=== PATIENT | female | born 1975 | race Caucasian/White ===

== ENCOUNTER 2018-08-24 13:20 | Emergency (ER) | payer SELFPAY ==
[2018-08-24 14:04] LABS: Absolute Lymphocytes (CBC) 0.7 K/uL (0.7-4.9); Absolute Monocytes 0.3 K/uL (0.1-1.3); Absolute Neutrophil 7.2 K/uL (1.8-8.0); Basophils % 0.6 % (0-1.3); Eosinophils % 0.1 % (0-4.4); Hematocrit 40.1 % (36.0-45.0); MPV 11.4 fL (7.6-11.3); Monocytes % 3.8 % (3.3-12.3); RBC Red Blood Cell Count 4.71 M/uL (3.86-4.86)
[2018-08-24 14:10] LABS: Protime INR 1.02
[2018-08-24 14:18] LABS: Urine Blood 1+ (NEG); Urine Glucose NEGATIVE (NEG); Urine Protein 3+ (NEG); Urine pH 5.5 (5.0-7.0)
[2018-08-24 14:24] LABS: Barbiturates NEGATIVE (NEGATIVE); Benzodiazepines POSITIVE (NEGATIVE); Cocaine NEGATIVE (NEGATIVE); METHAMPHETAM NEGATIVE (NEGATIVE); Methadone NEGATIVE (NEGATIVE); Opiates NEGATIVE (NEGATIVE); Phencyclidine NEGATIVE (NEGATIVE); THC Cannibis POSITIVE (NEGATIVE)
[2018-08-24 14:24] LABS: ALT/SGPT 21 U/L (12-78); AST/SGOT 24 U/L (15-37); Albumin 4.4 g/dL (3.4-5.0); Alkaline Phosphatase 56 U/L (45-117); BUN Blood Urea Nitrogen 6 mg/dL (7-18); Bicarbonate 23 mmol/L (21-32); Bilirubin Direct < 0.1 mg/dL (0-0.2); Bilirubin Total 0.4 mg/dL (0.2-1.0); Glucose Level 127 mg/dL (74-106); Potassium 3.9 mmol/L (3.5-5.1); Protein, Total 7.3 g/dL (6.4-8.2); Sodium Level 142 mmol/L (136-145)
--- NOTE | 2018-08-24 14:45 | EDPHYS ---
Physician Documentation [facility] Name: Aury Guerra Age: 43 yrs Sex: Female : 1975 Arrival Date: 08/24/2018 Time: 13:24 Bed 14 Private MD: ED Physician Jered Gutierrez HPI: 08/24 14:07 This 43 yrs old Female presents to ER via EMS with complaints of Seizure. snw 14:07 The patient presents after having a single isolated seizure, that lasted an unknown snw period of time, the episode(s) was witnessed, by co-worker(s). Character of seizure(s): Loss of consciousness: the patient experienced loss of consciousness, Motor activity: the motor activity is unknown, Incontinence: none, Apnea: the patient did not experience apnea, Circulation: the patient did not experience evidence of pulse disturbance, Eye movements: are unknown. Seizure onset: just prior to arrival. Seizure Hx: Last seizure: The patient's last seizure was approximately 1.5 month(s) ago. Associated injury: The patient did not suffer any apparent associated injury. EMS care: IV fluids, supplemental oxygen. Current symptoms: Currently, the patient is not experiencing any symptoms. x 3 or 4 per report. The patient has not recently seen a physician. 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 - Social history:: Smoking status: Patient uses tobacco products, smokes one-half pack cigarettes per day. - Ebola Screening: : Patient negative for fever greater than or equal to 101.5 degrees Fahrenheit, and additional compatible Ebola Virus Disease symptoms Patient denies exposure to infectious person Patient denies travel to an Ebola-affected area in the 21 days before illness onset No symptoms or risks identified at this time. ROS: 13:44 Constitutional: Negative for fever, chills, and weight loss, Eyes: Negative for injury, snw pain, redness, and discharge, ENT: Negative for injury, pain, and discharge, Neck: Negative for injury, pain, and swelling, Cardiovascular: Negative for chest pain, palpitations, and edema, Respiratory: Negative for shortness of breath, cough, wheezing, and pleuritic chest pain, Abdomen/GI: Negative for abdominal pain, nausea, vomiting, diarrhea, and constipation, Back: Negative for injury and pain, : Negative for injury, bleeding, discharge, and swelling, MS/Extremity: Negative for injury and deformity, Skin: Negative for injury, rash, and discoloration, Psych: Negative for depression, anxiety, suicide ideation, homicidal ideation, and hallucinations. 13:44 Neuro: Positive for seizure activity, pt states she has had 3-4 seizures in her life, first one was 1.5 years ago, last one before today was 1.5 months ago. Today pt was at work and her co-workers state she had a seizure. She says she does not recall seizure but awoke confused in ambulance. Pt alert and oriented x 3 in ED. Pt denies ever being seen for seizure activity. Exam: 13:44 Constitutional: This is a well developed, well nourished patient who is awake, alert, snw and in no acute distress. Head/Face: Normocephalic, atraumatic. Eyes: Pupils equal round and reactive to light, extra-ocular motions intact. Lids and lashes normal. Conjunctiva and sclera are non-icteric and not injected. Cornea within normal limits. Periorbital areas with no swelling, redness, or edema. ENT: Nares patent. No nasal discharge, no septal abnormalities noted. Tympanic membranes are normal and external auditory canals are clear. Oropharynx with no redness, swelling, or masses, exudates, or evidence of obstruction, uvula midline. Mucous membranes moist. Neck: Trachea midline, no thyromegaly or masses palpated, and no cervical lymphadenopathy. Supple, full range of motion without nuchal rigidity, or vertebral point tenderness. No Meningismus. Chest/axilla: Normal chest wall appearance and motion. Nontender with no deformity. No lesions are appreciated. Cardiovascular: Regular rate and rhythm with a normal S1 and S2. No gallops, murmurs, or rubs. Normal PMI, no JVD. No pulse deficits. Respiratory: Lungs have equal breath sounds bilaterally, clear to auscultation and percussion. No rales, rhonchi or wheezes noted. No increased work of breathing, no retractions or nasal flaring. Abdomen/GI: Soft, non-tender, with normal bowel sounds. No distension or tympany. No guarding or rebound. No evidence of tenderness throughout. Back: No spinal tenderness. No costovertebral tenderness. Full range of motion. Skin: Warm, dry with normal turgor. Normal color with no rashes, no lesions, and no evidence of cellulitis. MS/ Extremity: Pulses equal, no cyanosis. Neurovascular intact. Full, normal range of motion. Neuro: Awake and alert, GCS 15, oriented to person, place, time, and situation. Cranial nerves II-XII grossly intact. Motor strength 5/5 in all extremities. Sensory grossly intact. Cerebellar exam normal. Normal gait. Psych: Awake, alert, with orientation to person, place and time. Behavior, mood, and affect are within normal limits. Vital Signs: 13:33 BP 123 / 80; Pulse 104; Resp 16; Pulse Ox 100% on R/A; Weight 49.9 kg; Height 5 ft. 5 iw in. (165.10 cm); Pain 0/10; 14:30 BP 123 / 72; Pulse 94; Resp 19; Pulse Ox 99% on R/A; ph 15:49 BP 118 / 78; Pulse 91; Resp 16; Temp 97.9; Pulse Ox 99% on R/A; ph 13:33 Body Mass Index 18.30 (49.90 kg, 165.10 cm) iw [place] Coma Score: 13:31 Eye Response: spontaneous(4). Verbal Response: oriented(5). Motor Response: obeys iw commands(6). Total: 15. MDM: 13:25 Patient medically screened. snw 14:30 Data reviewed: vital signs, nurses notes. Data interpreted: Pulse oximetry: on room air snw is 100 %. Interpretation: normal. Counseling: I had a detailed discussion with the patient and/or guardian regarding: the historical points, exam findings, and any diagnostic results supporting the discharge/admit diagnosis, the presence of at least one elevated blood pressure reading (>120/80) during this emergency department visit, lab results, the need for outpatient follow up, for definitive care, to return to the emergency department if symptoms worsen or persist or if there are any questions or concerns that arise at home. Refusal of service: The patient/guardian displays adequate decision making capability and despite a detailed discussion of alternatives, benefits, risks, and consequences refuses: CT Scan, pt states she smoked a bunch of pot last night and she sometimes has seizures if she takes gabapentin. Special discussion: Based on the patient's history, exam and DX evaluation, there is no indication for emergent intervention or inpatient TX. It is understood by the patient/guardian that if the SXs persist or worsen they need to return immediately for re-evaluation. Based on the history and exam findings, there is no indication for further emergent testing or inpatient evaluation. I discussed with the patient/guardian the need to see the neurologist for further evaluation of the symptoms. I discussed with the patient/guardian the need to see the primary care provider for further evaluation of the symptoms. 08/24 13:32 Order name: Acetaminophen [facility] 08/24 13:32 Order name: Basic Metabolic Panel [facility] 08/24 13:32 Order name: CBC with Diff; Complete Time: 14:09 [facility] 08/24 13:32 Order name: ETOH Level; Complete Time: 14: [facility] 08/24 13:32 Order name: Hepatic Function; Complete Time: 14: [facility] 08/24 13:32 Order name: PT-INR; Complete Time: 14:14 [facility] 08/24 13:32 Order name: Ptt, Activated; Complete Time: 14:14 [facility] 08/24 13:32 Order name: Salicylate; Complete Time: 14: [facility] 08/24 13:32 Order name: Urine Drug Screen; Complete Time: 14:25 [facility] 08/24 13:32 Order name: Acetaminophen Level; Complete Time: 14:26 [facility] 08/24 13:32 Order name: Basic Metabolic Panel; Complete Time: 14:26 [facility] 08/24 14:08 Order name: Urine Dipstick--Ancillary (enter results); Complete Time: 14:22 08/24 14:08 Order name: Urine --Ancillary (enter results); Complete Time: 14:22 08/24 13:32 Order name: Urine Test (obtain specimen); Complete Time: 14:11 [facility] 08/24 13:32 Order name: EKG; Complete Time: 13:33 [facility] 08/24 13:32 Order name: EKG - Nurse/Tech; Complete Time: 13:58 [facility] 08/24 13:32 Order name: IV Saline Lock; Complete Time: 13:58 snw 08/24 13:32 Order name: Labs collected and sent; Complete Time: 13:58 snw 08/24 13:32 Order name: Urine Dipstick-Ancillary (obtain specimen); Complete Time: 14:11 snw Administered Medications: No medications were administered Disposition: 18:47 Co-signature as Attending Physician, Jered Gutierrez MD. rn Disposition: 08/24/18 14:44 Discharged to Home. Impression: Seizure. - Condition is Stable. - Discharge Instructions: Seizure, Adult, Stress and Stress Management, What You Need To Know About Illegal Drug Use and Dependence, Youth. - Work release form, Medication Reconciliation Form, Thank You Letter, Antibiotic Education, Prescription Opioid Use, Family Work Release form. - Follow up: Private Physician; When: 2 - 3 days; Reason: Recheck today's complaints, Continuance of care, Re-evaluation by your physician. Follow up: Emergency Department; When: As needed; Reason: Worsening of condition. Signatures: Dispatcher [employer] [facility] Alyssa Michel, RACK LOADER-C RACK LOADER-Csnw Lizzie Coyle, RN RN Jered Rosario MD MD rn Hall, Patricia, RN RN ph Corrections: (The following items were deleted from the chart) 15:46 13:33 Head Brain Wo Cont+CT.RAD.BRZ ordered. [facility] 15:49 14:44 08/24/2018 14:44 Discharged to Home. Impression: Seizure. Condition is Stable. ph Forms are Medication Reconciliation Form, Thank You Letter, Antibiotic Education, Prescription Opioid Use. Follow up: Private Physician; When: 2 - 3 days; Reason: Recheck today's complaints, Continuance of care, Re-evaluation by your physician. Follow up: Emergency Department; When: As needed; Reason: Worsening of condition. snw
--- NOTE | 2018-08-24 14:45 | ER ---
Nurse's Notes [facility] Name: Aury Guerra Age: 43 yrs Sex: Female : 1975 Arrival Date: 08/24/2018 Time: 13:24 Bed 14 Private MD: Diagnosis: Seizure Presentation: 08/24 13:26 Presenting complaint: EMS states: witnessed seizure at work, described as shaking all iw over, dropped a plate, eyes open, fell to ground, did not hit head, lasted approx 1-2 minutes, pt has hx of seizures but not on sz meds, last seizure was 4 months ago, has only had 2 or 3 seizures in her life, EMS reports pt was diaphoretic on scene, STach on monitor, pt was wandering around on scene, answer questions appropriately, unable to tell date, pt A\\T\\OX3 upon arrival to ER, denies headache, dizziness, denies drug or alcohol use, no obvious injuries noted. CE=117 per EMS. Transition of care: patient was not received from another setting of care. Onset of symptoms was August 24, 2018. Risk Assessment: Do you want to hurt yourself or someone else? Patient reports no desire to harm self or others. Initial Sepsis Screen: Does the patient meet any 2 criteria? No. Patient's initial sepsis screen is negative. Does the patient have a suspected source of infection? No. Patient's initial sepsis screen is negative. Care prior to arrival: IV initiated. 18 GA, in the right wrist, Glucose check: 159. 13:26 Method Of Arrival: EMS: [facility] iw 13:26 Acuity: AUREA 3 iw Triage Assessment: 13:31 General: Appears in no apparent distress. Behavior is calm, cooperative. Pain: Denies iw pain. Neuro: Level of Consciousness is awake, alert, obeys commands, Oriented to person, place, time, Moves all extremities. 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 - Social history:: Smoking status: Patient uses tobacco products, smokes one-half pack cigarettes per day. - Ebola Screening: : Patient negative for fever greater than or equal to 101.5 degrees Fahrenheit, and additional compatible Ebola Virus Disease symptoms Patient denies exposure to infectious person Patient denies travel to an Ebola-affected area in the 21 days before illness onset No symptoms or risks identified at this time. Screenin:47 Abuse screen: Denies threats or abuse. Denies injuries from another. Nutritional ph screening: No deficits noted. Tuberculosis screening: No symptoms or risk factors identified. Fall Risk Fall in past 12 months (25 points). Secondary diagnosis (15 points) seizures, IV access (20 points). Ambulatory Aid- None/Bed Rest/Nurse Assist (0 pts). Gait- Normal/Bed Rest/Wheelchair (0 pts) Mental Status- Oriented to own ability (0 pts). Total Mitchell Fall Scale indicates High Risk Score (45 or more points). Fall prevention measures have been instituted. Side Rails Up X 2 Frequent Obs/Assessments Occuring As available patient and family educated on Fall Prevention Program and Strategies. Assessment: 13:45 General: Appears in no apparent distress. comfortable, slender, well groomed, Behavior ph is calm, cooperative, appropriate for age, Denies fever, feeling ill. Pain: Denies pain. Neuro: Level of Consciousness is awake, alert, obeys commands, Oriented to person, place, time, situation, Denies dizziness, headache Seizure activity reported prior to arrival. Seizure lasted approximately 1 minutes. Cardiovascular: Capillary refill < 3 seconds in bilateral fingers Patient's skin is warm and dry. Rhythm is sinus tachycardia. Respiratory: Airway is patent Respiratory effort is even, unlabored. GI: No signs and/or symptoms were reported involving the gastrointestinal system. Patient currently denies abdominal pain, nausea, vomiting. Derm: Skin is intact, is healthy with good turgor, Skin is pink, warm \\T\\ dry. Musculoskeletal: Circulation, motion, and sensation intact. Range of motion: intact in all extremities. 14:45 Reassessment: Patient appears in no apparent distress at this time. Patient and/or ph family updated on plan of care and expected duration. Pain level reassessed. Patient is alert, oriented x 3, equal unlabored respirations, skin warm/dry/pink. Pt refusing CT scan, states, " I can't afford to have one because I don't have any insurance." Pt also admitted to using marijuana, ETOH and Xanax last night. ERP notified. 15:47 Reassessment: Patient appears in no apparent distress at this time. Patient and/or ph family updated on plan of care and expected duration. Pain level reassessed. Patient is alert, oriented x 3, equal unlabored respirations, skin warm/dry/pink. Pt instructed to follow up w/ PCP and d/c home w/ daughter. Vital Signs: 13:33 BP 123 / 80; Pulse 104; Resp 16; Pulse Ox 100% on R/A; Weight 49.9 kg; Height 5 ft. 5 iw in. (165.10 cm); Pain 0/10; 14:30 BP 123 / 72; Pulse 94; Resp 19; Pulse Ox 99% on R/A; ph 15:49 BP 118 / 78; Pulse 91; Resp 16; Temp 97.9; Pulse Ox 99% on R/A; ph 13:33 Body Mass Index 18.30 (49.90 kg, 165.10 cm) iw [place] Coma Score: 13:31 Eye Response: spontaneous(4). Verbal Response: oriented(5). Motor Response: obeys iw commands(6). Total: 15. ED Course: 13:24 Patient arrived in ED. iw 13:25 Alyssa Michel FNP-C [facility]. snw 13:25 Jered Gutierrez MD is Attending Physician. snw 13:29 Triage completed. iw 13:31 Arm band placed on. iw 13:32 Maureen Mata, RN is Primary Nurse. ph 13:32 Patient has correct armband on for positive identification. Placed in gown. Seizure iw precautions initiated. 13:46 Radiology exam delayed due to test not completed at this time. mw3 14:10 Initial lab(s) drawn, by me, sent to lab. Urine collected: clean catch specimen, clear. 5 Maintain EMS IV. Dressing intact. Site clean \\T\\ dry. 14:11 Urine --Ancillary (enter results) Sent. 5 14:11 Urine Dipstick--Ancillary (enter results) Sent. 5 14:11 Basic Metabolic Panel Sent. 5 14:11 Acetaminophen Level Sent. 5 14:11 Acetaminophen Sent. 5 14:11 Basic Metabolic Panel Sent. [facility]h5 14:[address] [facility] 14:[address] [facility] 14:12 Bed in low position. Call light in reach. Side rails up X2. Seizure precautions [facility] initiated. Warm blanket given. practice specialist on. Pulse ox on. NIBP on. 14:[address] [facility] 14:12 Urine Drug Screen Sent. [facility] 15:48 No provider procedures requiring assistance completed. IV discontinued, intact, ph bleeding controlled, No redness/swelling at site. Pressure dressing applied. Administered Medications: No medications were administered Outcome: 14:44 Discharge ordered by . snw 15:48 Discharged to home ambulatory, with family. ph 15:48 Condition: good 15:48 Discharge instructions given to patient, Instructed on discharge instructions, follow up and referral plans. Demonstrated understanding of instructions, follow-up care. 15:49 Patient left the ED. ph Signatures: Alyssa Michel, PAPER CLEANER-C PAPER CLEANER-Csnw Lizzie Coyle RN RN iw Hall, Patricia, RN RN ph Martinez, Maria [facility] Nellie Caceres 3
[2018-08-24 15:59] VITALS: O2SAT 99
[2018-08-24 16:00] VITALS: BP 118/78; TEMP 97.9
== END 2018-08-24 15:49 | disposition home or self-care (01) ==
LOC: ER 13:20
DX: R56.9 Unspecified convulsions (principal); Z88.0 Allergy status to penicillin; F17.210 Nicotine dependence, cigarettes, uncomplicated
CPT/HCPCS: 36415; 80048; 80076; 80307; 80320; 80329; 81003; 81025; 85025; 85610; 85730; 93005; 99284